=== PATIENT | male | born 1940 | race Caucasian/White ===

== ENCOUNTER 2017-12-11 14:09 | Inpatient (IN) | payer MEDICARE ==
[~2017-12-11] VITALS: Ht 182.9 cm; Wt 96.3 kg
[~2017-12-11 14:09] MED LIST: ASPI325T6 PO; CARDURA 8MG TAB8 MG PO; LOPRESSOR 550 MG/TAB PO; ZOCOR 20MG20 MG PO
[2017-12-11 14:30] VITALS: BP 131/67; PULSE 72
[2017-12-11] MEDS ORDERED: LIPITOR 40MG TA40 MG PO (14:37)
[2017-12-11] MEDS ORDERED: COREG 3.123.125 MG/T PO (14:38)
[2017-12-11] MEDS ORDERED: CENTRUM SILVER1 CTB PO (14:39)
[2017-12-11 17:46] VITALS: TEMP 98.4
[2017-12-12 05:36] VITALS: BP 147/69; PULSE 60; TEMP 98.7
[2017-12-12 16:28] VITALS: BP 136/65; PULSE 79; TEMP 97.9
[2017-12-13 05:25] VITALS: BP 135/66; PULSE 85; TEMP 97.7
[2017-12-13 15:00] LABS: MUCOUS Present /lpf; PH 6 (5-8); SQUAMOUS EPITHELIAL 0-2 /hpf; URINE APPEARANCE Clear; URINE BACTERIA None Seen /hpf; URINE BILIRUBIN Negative (NEGATIVE); URINE BLOOD Negative (NEGATIVE); URINE COLOR Yellow; URINE GLUCOSE Negative (NEGATIVE); URINE KETONE Negative (NEGATIVE); URINE LEUKOCYTE ESTERASE Trace (NEGATIVE); URINE NITRATE Positive (NEGATIVE); URINE PROTEIN(semi-quant) Negative (NEGATIVE); URINE UROBILINOGEN >=4.0 mg/dL (NEGATIVE)
[2017-12-13 15:06] LABS: COLLECTION METHOD CLEAN CATCH
[2017-12-13 15:40] VITALS: BP 145/76; PULSE 70; TEMP 98.1
[2017-12-14 04:58] VITALS: BP 143/64; PULSE 74; TEMP 98.6
[2017-12-14 18:26] VITALS: BP 157/68; PULSE 80; TEMP 97.5
[2017-12-15 04:55] VITALS: BP 135/65; PULSE 70; TEMP 97.7
[2017-12-15 16:02] VITALS: BP 137/56; PULSE 68; TEMP 97.6
[2017-12-16 06:00] VITALS: BP 145/65; PULSE 75; TEMP 98.4
[2017-12-16 15:49] VITALS: BP 142/70; PULSE 65; TEMP 97.7
[2017-12-17 06:23] VITALS: BP 125/62; PULSE 70; TEMP 98.6
[2017-12-17 17:17] VITALS: BP 148/60; PULSE 73; TEMP 97.6
[2017-12-18 06:33] VITALS: BP 142/77; PULSE 64; TEMP 97.9
[2017-12-18] MEDS ORDERED: CIPRO 500MG TA500 MG PO (08:26)
[2017-12-18] MEDS ORDERED: TYLENOL 325MG325 MG PO (08:27)
[2017-12-18] MEDS ORDERED: AZO URINARY PAI95 MG PO (08:27)
== END 2017-12-18 14:00 | disposition home or self-care (01) | DRG 57 ==
PROVIDERS: Internal Medicine
DX: I69.351 Hemiplegia and hemiparesis following cerebral infarction affecting right dominant side (principal); N39.0 Urinary tract infection, site not specified; I69.328 Other speech and language deficits following cerebral infarction; I10 Essential (primary) hypertension; G47.33 Obstructive sleep apnea (adult) (pediatric); Z87.891 Personal history of nicotine dependence; B95.7 Other staphylococcus as the cause of diseases classified elsewhere
CPT/HCPCS: 99222-AI; 99232-AI; 99239; J1650